=== PATIENT | female | born 1975 | race Two or more races ===

== ENCOUNTER 2016-05-11 21:10 | Emergency (ER) | payer SELFPAY ==
[~2016-05-11] VITALS: Ht 160 cm; Wt 81.6 kg
[~2016-05-11 21:10] MED LIST: ADVIL100 MG ORAL
[2016-05-11 21:30] VITALS: BP 136/89
[2016-05-11] MEDS ORDERED: VENTOLIN HFA18 GM INH (21:53)
[2016-05-11] MEDS ORDERED: FLONASE ALLERG9.9 ML NS (21:53)
[2016-05-11] MEDS ORDERED: ACETAMINOPHEN-1 EAC1 ORAL (21:53)
--- NOTE | 2016-05-11 22:03 | Emergency Room Report ---
History of Present Illness General Chief Complaint: Earache Source: Patient Present Illness HPI 41 YO F with right earache for 1 day. Also associated with "A few days of dry cough, sinus congestion, rhinorrhea." Denies fever/chills, smoking, history of asthma/ COPD/CHF. No other significant med problems. Daughter also registered in ER for left earache. She has been taking sudafed occassionally for congestion with relief. 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 Review of Systems All Other Systems: negative except mentioned in HPI Physical Exam Vital Signs Date Time Temp Pulse Resp B/P Pulse Ox O2 Delivery O2 Flow Rate FiO2 05/11/16 21:39 97.9 74 16 128/73 100 Room Air Sp02 EP Interpretation: reviewed, normal General Appearance: normal inspection, well appearing, no apparent distress, alert Head: normocephalic, atraumatic Eyes: bilateral eye EOMI, bilateral eye PERRL ENT: normal ENT inspection, hearing grossly normal, normal pharynx, no angioedema, normal voice, TMs + canals normal, uvula midline Neck: normal inspection, full range of motion, supple, no bony tend Respiratory: normal inspection, lungs clear, normal breath sounds, no rhonchi, no respiratory distress, no retraction, no accessory muscle use, no wheezing Cardiovascular #1: regular rate, rhythm, no edema Gastrointestinal: normal inspection, normal bowel sounds, non tender, soft, no guarding, no hernia Genitourinary: no CVA tenderness Musculoskeletal: normal inspection, back normal, normal range of motion, Yessi' s Sign negative Neurologic: normal inspection, alert, oriented x3, responsive, 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 VSS. Afebrile. No obvious source of bacterial infection in oropharynx, ears, lungs, skin, abdomen on exam Well appearing Advised supportive treatment Flonase as needed for sinus congestion T#3, ventolin as needed for cough PMD followup DC home Understands to return for worsening symptoms Last Vital Signs Date Time Temp Pulse Resp B/P Pulse Ox O2 Delivery O2 Flow Rate FiO2 05/11/16 21:39 97.9 74 16 128/73 100 Room Air Status: improved Disposition: HOME, SELF-CARE Condition: Improved Scripts Albuterol Sulfate (VENTOLIN HFA) 18 Gm Hfa.aer.ad 2 PUFFS INH EVERY 6 HOURS, #18 GM 0 Refills Prov: FAUSTINO PETERS M.D. 05/11/16 Acetaminophen With Codeine (T#3) (TYLENOL #3 TAB*) Y Tab 2 TAB ORAL Q8H Y for For Cough for 7 Days, #30 TAB Prov: FAUSTINO PETERS M.D. 05/11/16 Fluticasone Propionate (Flonase Allergy Relief) 9.9 Ml Edroy.susp 9.9 ML NS BID for 7 Days, UNIT Prov: FAUSTINO PETERS M.D. 05/11/16 Patient Instructions: Upper Respiratory Infection, Adult, [id number], Earache Additional Instructions: - Use albuterol/ventolin inhaler during the day for cough and Tylenol #3 at night for cough - Continue sudafed during the day as needed for congestion - Use flonase as prescribed for nasal congestion - Drink plenty of fluid FAUSTINO PETERS M.D. May 11, 2016 22:03
[2016-05-11 22:19] VITALS: BP 128/73
== END 2016-05-11 22:05 | disposition home or self-care (01) ==
LOC: EMR 21:45
DX: J06.9 Acute upper respiratory infection, unspecified (principal); H92.01 Otalgia, right ear
CPT/HCPCS: 99284